=== PATIENT | male | born 1940 | race Hispanic/Latino ===

== ENCOUNTER 2017-01-27 08:26 | Day surgery (SDC) | payer MEDICARE ==
[~2017-01-27 08:26] MED LIST: ANCEF/STERILE WATER 2 GM/20 ML 2 GM/20 ML SYRINGE IV NR; NACL 0.9% 1000 ML 1,000 ML IV SCH
[2017-01-27] MEDS ORDERED: NACL 0.9% 500 ML 500 ML IV SCH (09:00)
[2017-01-27] MEDS ORDERED: SUBLIMAZE ONE (09:27)
[2017-01-27] MEDS ORDERED: DIPRIVAN 10 MG/ML IV ONE ×3 (09:27→12:51)
[2017-01-27] MEDS ORDERED: VERSED ONE (09:28)
[2017-01-27 09:46] LABS: Anion Gap 14 mmol/L; BUN/Creatinine Ratio 21.25; Blood Urea Nitrogen 17 mg/dL (9-20); Calcium 8.8 mg/dL (8.4-10.2); Carbon Dioxide 29 mmol/L (22-30); Chloride 98.5 mmol/L (98-107); Glucose 112 mg/dL (75-100); Potassium 3.5 mmol/L (3.6-5.0); Sodium 138 mmol/L (137-145)
[2017-01-27 09:54] LABS: Basophils % (Auto) 0.4 % (0.0-1.8); Eosinophils % (Auto) 3.2 % (0.0-4.3); Hematocrit 41.5 % (35.5-45.6); Hemoglobin 14.2 gm/dl (11.8-15.2); Mean Corpuscular HGB Conc 34 % (32-34); Mean Corpuscular Hemoglobin 30 pg (28-32); Mean Corpuscular Volume 89 fl (84-94); Platelet Count 247 K/mm3 (140-440); Red Blood Count 4.69 M/mm3 (3.65-5.03); Red Cell Distribution Width 13.4 % (13.2-15.2); White Blood Count 5.5 K/mm3 (4.5-11.0)
[2017-01-27] MEDS ORDERED: ANCEF/STERILE WATER 2 GM/20 ML 2 GM/20 ML SYRINGE IV ONE (10:18)
[2017-01-27] MEDS ORDERED: NACL 0.9% 1000 ML 1,000 ML ONE ×2 (10:21→12:47)
[2017-01-27] MEDS: XYLOCAINE 1%/ EPI 1:100,000 INFILTRATI ONE ×2 (10:33→10:52)
[2017-01-27] MEDS: HEPARIN/NS 5000 UNIT/500ML(CATH LAB) 1,000 ML IR ONE ×2 (10:34→10:52)
[2017-01-27] MEDS: HEPARIN 10,000 UNITS/10 ML ONE ×2 (11:17→12:00)
[2017-01-27] MEDS ORDERED: HEPARIN/NS 5000 UNIT/500ML(CATH LAB) 500 ML IR ONE (11:48)
--- NOTE | 2017-01-27 12:02 | Anesthesia Consultation ---
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
--- NOTE | 2017-01-27 12:03 | Post Anesthesia Evaluation ---
- Post Anesthesia Evaluation Patient Participated: Yes Airway Patent: Yes Stable Respiratory Function: Yes Nausea/Vomiting: No Temp > 96.8F: Yes Pain Manageable: Yes Adequeate Hydration: Yes Anesthesia Complications: No Block Receding Appropriately: Not Applicable Patient on Ventilator: No
--- NOTE | 2017-01-27 12:03 | Anesthesia Day of Surgery ---
Anesthesia Day of Surgery - Day of Surgery Patient Examined: Yes Patient H&P Reviewed: Yes Patient is NPO: Yes
--- NOTE | 2017-01-27 12:49 | Short Stay Summary ---
Short Stay Documentation Date of service: 01/27/17 - History Principal diagnosis: iliac artery aneurysm H&P: obtained from office - Allergies and Medications Current Medications: Allergies No Known Allergies Allergy (Verified 01/27/17 08:52) Home Medications Medication Instructions Recorded Confirmed Last Taken Type Multivitamin [Multi-Vitamin Daily] 1 each PO DAILY 06/04/13 01/27/17 01/26/17 History hydrALAZINE [Apresoline TAB] 25 mg PO Q8H 06/04/13 01/27/17 01/26/17 History Amoxicillin [Amoxicillin] 500 mg PO BID 01/27/17 01/27/17 01/26/17 History Clarithromycin [Clarithromycin] 500 mg PO QDAY 01/27/17 01/27/17 01/26/17 History Losartan/Hydrochlorothiazide 1 tab PO QDAY 01/27/17 01/27/17 01/26/17 History [Losartan-Hctz 100-25 mg Tab] Omeprazole 10 mg PO QDAY 01/27/17 01/27/17 01/26/17 History Active Medications Cefazolin Sodium (Ancef/Sterile Water 2 Gm/20 Ml) 2 gm in 20 mls @ 80 mls/hr IV PREOP NR PRN Reason: Protocol Stop: 01/27/17 23:00 Last Admin: 01/27/17 10:34 Dose: 20 mls Sodium Chloride (Nacl 0.9% 500 Ml) 500 mls @ 50 mls/hr IV DIRECT KHAI - Brief post op/procedure progress note Date of procedure: 01/27/17 Pre-op diagnosis: REAL aneurysm Post-op diagnosis: same Procedure: exclusion of aneurysm Anesthesia: local Surgeon: JARET ALDRICH Pathology: none Condition: stable - Disposition Condition at discharge: Good Disposition: DISCHARGED TO HOME OR SELFCARE Short Stay Discharge Plan Activity: advance as tolerated Weight Bearing Status: Weight Bear as Tolerated Diet: regular Wound: keep clean and dry, per your surgeon's advice Follow up with: PRIMARY CARE, [Primary Care Provider] - 7 Days
--- NOTE | 2017-01-27 12:59 | Operative Report ---
Operative Report Operative Report: Exam: EXAM: STENT/GRAFT PLACEMENT AND COIL EMBOLIZATION TO EXCLUDE RIGHT COMMON ILIAC ARTERY ANEURYSM CLINICAL INDICATION: 6 CM RIGHT COMMON ILIAC ARTERY ANEURYSM DATE: 01/27/2017 PROCEDURE: Following an explanation of the risks, benefits and alternatives; written informed consent was obtained. The patient was brought to the injury We placed in supine position on the examination table. Initial ultrasound evaluation of his bilateral groins demonstrate a patent bilateral common femoral arteries. His groins were prepped and draped in the usual sterile fashion. 1% lidocaine was used for anesthesia. Under ultrasound guidance, the right common femoral artery was cannulated with a 7 cm 21-gauge needle. 0.018 guidewire was advanced centrally under fluoroscopy. The needle was removed and a micro-sheath placed. The 0.018 guidewire was exchanged for a 0.035 guidewire and the micro-sheath exchanged for a 8 [place] vascular sheath. Under ultrasound guidance, the left common femoral artery was cannulated with a 7 cm 21-gauge needle. A 0.018 guidewire was advanced centrally under fluoroscopy. The needle was removed and a micro-sheath placed. The 0.018 guidewire was exchanged for a 0.035 guidewire and the micro-sheath exchanged for a 5 [place] vascular sheath. An Omni flush catheter was advanced to the aortic bifurcation and angiography performed. His demonstrates a widely patent distal abdominal aorta. Multiple obliquities were obtained to demonstrate deep neck of the right common iliac artery aneurysm as well as the origin of the external iliac artery and internal iliac artery. Attempts to cannulate the internal iliac artery from a contralateral approach were unsuccessful therefore a decision was made to approach from the right sheath. A 5 [place] rim catheter and 0.035 guidewire were advanced through the right sheath and used to cannulate the right internal iliac artery. Digital subtraction angiography demonstrates the origin of distal branch vessels to provide an adequate zone for embolization. A renegade high flow microcatheter was advanced through the rim catheter into the midportion of the right internal iliac artery proximal to the origin of any pelvic vessels. Embolization of the internal iliac artery was then performed using 4 Mandi coils. Post embolization imaging and demonstrated cessation of flow. Through the right sheath, a 4 [place] vertebral catheter was then placed over 0.035 guidewire and advanced into the abdominal aorta. An Amplatz superstiff guidewire was then advanced through the vertebral catheter number he will catheter removed. Angiography performed from the contralateral catheter placed in the distal abdominal aorta and through the right sheath insertion site demonstrated the origin of the aneurysm as well as the draining vessels. A 7.9 mm x 11 mm V BX stent/graft was then advanced to extend from the right external iliac artery into the right common iliac artery. A 5.9 mm x 11 mm V BX stent/graft was then advanced through the first stent from the right common iliac artery to the aortic bifurcation. The proximal end of the stent/graft material at the aortic bifurcation wasn't seated using a 14 mm balloon insufflated to 8 janine for 30 seconds. The overlap was then treated using a 14 mm balloon insufflated to poor atmospheres for 30 seconds. Post stent imaging demonstrated a persistent endoleak along the inferior aspect of the stent/ graft. An additional 5.9 mm x 11 mm V BX stent/graft was then advanced from the external iliac artery to the external iliac artery stent. The stent was then seated using the 14 mm balloon. Imaging obtained through the catheter on the contralateral side as well as imaging obtained to the sheath demonstrated brisk luminal flow throughout the entire common iliac artery and external iliac artery without flow limitation. No endoleak is present. There is no persistent filling of the aneurysm. Hemostasis was achieved and bilateral groins using Angio-Seal arterial closure device. Pressure dressings were then applied to bilateral groins. The patient tolerated the procedure well. There were no immediate post procedure compensations. Sedation was performed under guidance of anesthesia services. Continuous cardiopulmonary monitoring as he lies. IMPRESSION:1) Aortic and pelvic angiography demonstrating a 5-6 cm aneurysm arising from the right common iliac artery. 2) Embolization of the right internal iliac artery using 4 coils. 3) Exclusion of the aneurysm using 3 stent graft's deployed from the aortic bifurcation to the right common iliac artery to the right external iliac artery.
[2017-01-27 15:13] VITALS: BP 150/79
--- NOTE | 2017-01-27 15:58 | Vascular Lab Report ---
MISCELLANEOUS VESSEL IDENTIFICATION: COMMENTS ON THE SCAN: The bilateral common femoral arteries were identified and under real-time ultrasound guidance werecannulated. IMPRESSION: Successful ultrasound guided arterial cannulation.
== END 2017-01-27 08:27 | disposition home or self-care (01) ==
LOC: OPU 08:26
PROVIDERS: ATTEND Radiology Diagnostic Radiology
DX: I72.3 Aneurysm of iliac artery (principal); I70.245 Atherosclerosis of native arteries of left leg with ulceration of other part of foot; K21.9 Gastro-esophageal reflux disease without esophagitis; Z79.899 Other long term (current) drug therapy
CPT/HCPCS: 36415; 37221; 37223; 37242; 76937; 80048; 85025; C1725; C1751; C1760; C1769; C1887; C1894; J0690; J1644; J2250; J2704; J3010; J7030; 33223; 75630; Q9967

== ENCOUNTER 2019-05-17 19:53 | Emergency (ER) | payer MEDICARE ==
--- NOTE | 2019-05-17 20:19 | Emergency Department Report ---
ED Male HPI - General Chief complaint: Abdominal Pain Stated complaint: UNABLE TO URINATE Time Seen by Provider: 05/17/19 20:01 Source: EMS Mode of arrival: Stretcher Limitations: Physical Limitation, Other - History of Present Illness Initial comments: She is a 78-year-old male that presents emergency room with complaints of lower abdominal pressure and inability to urinate. Patient states he hasn't urinated for about 12 hours. Patient states he usually uses a condom catheter at home to urinate patient denies fever or chills. Patient denies other pain. Patient states the pressure is a 2 out of 10. -: Sudden Severity: mild Severity scale (0 -10): 2 Quality: aching Consistency: constant Improves with: rest Worsens with: movement urinary retention. denies: discharge, swelling, mass, rash, blood in urine, dysuria, fever, nausea/vomiting, incontinence - Related Data Home Medications Medication Instructions Recorded Confirmed Last Taken Multivitamin [Multi-Vitamin Daily] 1 each PO DAILY 06/04/13 01/27/17 01/26/17 hydrALAZINE [Apresoline TAB] 25 mg PO Q8H 06/04/13 01/27/17 01/26/17 Amoxicillin 500 mg PO BID 01/27/17 01/27/17 01/26/17 Clarithromycin 500 mg PO QDAY 01/27/17 01/27/17 01/26/17 Losartan/Hydrochlorothiazide 1 tab PO QDAY 01/27/17 01/27/17 01/26/17 [Losartan-Hctz 100-25 mg Tab] Omeprazole 10 mg PO QDAY 01/27/17 01/27/17 01/26/17 Previous Rx's Medication Instructions Recorded Last Taken Type Acetaminophen/Codeine [Tylenol 1 tab PO Q6H PRN #10 tab 05/17/19 Unknown Rx /Codeine # 3 tab] Sulfamethoxazole/Trimethoprim 1 each PO BID 10 Days #20 tablet 05/17/19 Unknown Rx [Bactrim DS TAB] Allergies Allergy/AdvReac Type Severity Reaction Status Date / Time No Known Allergies Allergy Verified 01/27/17 08:52 ED Review of Systems ROS: Stated complaint: UNABLE TO URINATE Other details as noted in HPI Constitutional: denies: chills, fever Eyes: denies: eye pain, eye discharge, vision change ENT: denies: ear pain, throat pain Respiratory: denies: cough, shortness of breath, wheezing Cardiovascular: denies: chest pain, palpitations Endocrine: no symptoms reported Gastrointestinal: abdominal pain. denies: nausea, diarrhea Genitourinary: denies: urgency, dysuria Musculoskeletal: denies: back pain, joint swelling, arthralgia Skin: denies: rash, lesions Neurological: denies: headache, weakness, paresthesias Psychiatric: denies: anxiety, depression Hematological/Lymphatic: denies: easy bleeding, easy bruising ED Past Medical Hx - Past Medical History Previous Medical History?: Yes Hx Hypertension: Yes (2010) Hx CVA: Yes (right sided weakness) Hx Heart Attack/AMI: No Hx Congestive Heart Failure: No Hx GERD: Yes Additional medical history: high cholesterol - Surgical History Past Surgical History?: Yes Additional Surgical History: Bilat knee, skull, bilat arm surgery - Family History Family history: no significant - Social History Smoking Status: Former Smoker Substance Use Type: None - Medications Home Medications: Home Medications Medication Instructions Recorded Confirmed Last Taken Type Multivitamin [Multi-Vitamin Daily] 1 each PO DAILY 06/04/13 01/27/17 01/26/17 History hydrALAZINE [Apresoline TAB] 25 mg PO Q8H 06/04/13 01/27/17 01/26/17 History Amoxicillin 500 mg PO BID 01/27/17 01/27/17 01/26/17 History Clarithromycin 500 mg PO QDAY 01/27/17 01/27/17 01/26/17 History Losartan/Hydrochlorothiazide 1 tab PO QDAY 01/27/17 01/27/17 01/26/17 History [Losartan-Hctz 100-25 mg Tab] Omeprazole 10 mg PO QDAY 01/27/17 01/27/17 01/26/17 History Acetaminophen/Codeine [Tylenol 1 tab PO Q6H PRN #10 tab 05/17/19 Unknown Rx /Codeine # 3 tab] Sulfamethoxazole/Trimethoprim 1 each PO BID 10 Days #20 tablet 05/17/19 Unknown Rx [Bactrim DS TAB] ED Physical Exam - General Limitations: Physical Limitation, Other General appearance: alert, in no apparent distress - Head Head exam: Present: atraumatic, normocephalic - Eye Eye exam: Present: normal appearance - ENT ENT exam: Present: mucous membranes moist - Neck Neck exam: Present: normal inspection - Respiratory Respiratory exam: Present: normal lung sounds bilaterally. Absent: respiratory distress - Cardiovascular Cardiovascular Exam: Present: regular rate, normal rhythm. Absent: systolic murmur, diastolic murmur, rubs, gallop - GI/Abdominal GI/Abdominal exam: Present: soft, normal bowel sounds. Absent: distended, tenderness, guarding - Rectal Rectal exam: Present: deferred - Extremities Exam Extremities exam: Present: normal inspection - Back Exam Back exam: Present: normal inspection - Neurological Exam Neurological exam: Present: alert, oriented X3 - Psychiatric Psychiatric exam: Present: normal affect, normal mood - Skin Skin exam: Present: warm, dry, intact, normal color. Absent: rash ED Course Vital Signs 05/17/19 05/17/19 05/17/19 19:57 20:13 20:16 Temperature 97.9 F Pulse Rate 98 H 100 H 102 H Respiratory 19 14 20 Rate Blood Pressure 169/94 159/101 O2 Sat by Pulse 98 95 95 Oximetry 05/17/19 05/17/19 05/17/19 20:30 20:46 21:00 Temperature Pulse Rate 96 H 91 H 92 H Respiratory 12 18 13 Rate Blood Pressure 184/103 159/101 184/107 O2 Sat by Pulse 96 94 95 Oximetry 05/17/19 05/17/19 05/17/19 21:10 21:16 21:30 Temperature Pulse Rate Respiratory 16 19 19 Rate Blood Pressure 184/103 202/112 O2 Sat by Pulse 94 94 Oximetry 05/17/19 05/17/19 05/17/19 21:46 22:00 22:16 Temperature Pulse Rate 89 Respiratory 20 14 19 Rate Blood Pressure 184/107 199/119 199/119 O2 Sat by Pulse 94 93 95 Oximetry 05/17/19 22:30 Temperature Pulse Rate 97 H Respiratory 21 Rate Blood Pressure 190/98 O2 Sat by Pulse 95 Oximetry - Reevaluation(s) Reevaluation #1: Alonso placed by nurse and patient states she's not having any pain or pressure. Patient states he is feeling good. 05/17/19 20:19 Reevaluation #2: Patient states she is feeling good. Patient's Alonso draining clear yellow urine 05/17/19 20:43 Reevaluation #3: I discussed all results with patient. Patient is stable for discharge. Patient will be discharged home. Patient agrees with plan of care. Patient given discharge instructions. Patient voiced understanding discharge instructions. 05/17/19 22:24 ED Medical Decision Making - Medical Decision Making OLU is a 78-year-old male that presents emergency room with complaints of lower abdominal pressure and inability to urinate. Patient had a Alonso placed immediately and his symptoms improved. Patient had a large volume of yellow urine removed. Patient's UA was done and was consistent with a UTI. Patient given antibiotics. Patient sent home with his Alonso. Patient instructed to follow-up with primary care in a urologist within 2-3 days. Patient stable for discharge. While in the ER the patient found to have elevated blood pressure. His home dose of hydralazine as well as clonidine 0.1 mg. Patient's final blood pressure was 170/80. - Differential Diagnosis UTI. Urinary retention. Critical care attestation.: If time is entered above; I have spent that time in minutes in the direct care of this critically ill patient, excluding procedure time. ED Disposition Clinical Impression: Urinary retention Abdominal pain Qualifiers: Abdominal location: lower abdomen, unspecified Qualified Code(s): R10.30 - Lower abdominal pain, unspecified UTI (urinary tract infection) Qualifiers: Urinary tract infection type: acute cystitis Hematuria presence: with hematuria Qualified Code(s): N30.01 - Acute cystitis with hematuria Hypertension Qualifiers: Hypertension type: essential hypertension Qualified Code(s): I10 - Essential (primary) hypertension Disposition: - TO HOME OR SELFCARE Is pt being admited?: No Does the pt Need Aspirin: No Condition: Stable Instructions: Urinary Retention in Men (ED), Urinary Tract Infection in Men (ED), Alonso Catheter Placement and Care (ED), Hypertension (ED), Urinary Leg Bag (GEN) Additional Instructions: Patient to follow up with primary care in 2-3 days. Patient to follow-up with urologist in 2-3 days. Patient to return to ER if condition worsens. Patient to take meds as directed. Patient increase water. . Patient to take Tylenol or ibuprofen when necessary for pain. Prescriptions: Sulfamethoxazole/Trimethoprim [Bactrim DS TAB] 1 each PO BID 10 Days #20 tablet Acetaminophen/Codeine [Tylenol /Codeine # 3 tab] 1 tab PO Q6H PRN #10 tab PRN Reason: Pain , Severe (7-10) Referrals: CALEB SALDANA MD [Primary Care Provider] - 2-3 Days Time of Disposition: 22:23
[2019-05-17] MEDS ORDERED: APRESOLINE PO ONE (21:52)
[2019-05-17 22:04] LABS: Bilirubin,Urine NEG (Negative); Blood,Urine LG (Negative); Color,Urine Yellow (Yellow); Protein,Urine <15 mg/dL mg/dL (Negative); Urobilinogen,Urine < 2.0 mg/dL (<2.0)
[2019-05-17] MEDS ORDERED: CATAPRES PO ONE (22:23)
[2019-05-17 22:34] VITALS: BP 190/98
== END 2019-05-18 02:41 | disposition home or self-care (01) ==
LOC: ED 19:53
DX: N39.0 Urinary tract infection, site not specified (principal); R33.9 Retention of urine, unspecified; I10 Essential (primary) hypertension; K21.9 Gastro-esophageal reflux disease without esophagitis; E78.00 Pure hypercholesterolemia, unspecified; Z86.73 Personal history of transient ischemic attack (TIA), and cerebral infarction without residual deficits; Z98.890 Other specified postprocedural states; Z87.891 Personal history of nicotine dependence; Z79.899 Other long term (current) drug therapy
CPT/HCPCS: 51702; 81001; 99283

== ENCOUNTER 2019-10-23 09:17 | Outpatient (CLI) | payer MEDICARE | END 2019-10-23 09:18 | disposition home or self-care (01) | LOC: WOUND 09:17 | PROVIDERS: ATTEND Surgery | DX: L20.9 Atopic dermatitis, unspecified (principal); H54.8 Legal blindness, as defined in USA; R41.3 Other amnesia; I10 Essential (primary) hypertension; Z86.73 Personal history of transient ischemic attack (TIA), and cerebral infarction without residual deficits | CPT/HCPCS: 99215; G0463 ==

== ENCOUNTER 2020-02-25 06:21 | Observation (INO) | payer MEDICARE ==
[2020-02-25] MEDS ORDERED: ASPIRIN 325 MG TAB PO ONE (06:47)
[2020-02-25] MEDS ORDERED: ACETAMINOPHEN 500 MG TAB PO ONE (07:02)
[2020-02-25] MEDS ORDERED: NITROGLYCERIN 0.4 MG TAB SUBL SL PRN (07:02)
[2020-02-25] MEDS ORDERED: FAMOTIDINE 20 MG TAB PO ONE (07:02)
--- NOTE | 2020-02-25 07:07 | Emergency Department Report ---
ED Chest Pain HPI - General Chief Complaint: Chest Pain Stated Complaint: CHEST PAIN PUI?: No Time Seen by Provider: 02/25/20 06:53 Source: EMS (Verbal report received from emergency medical services. EMS documentation not available at time of chart dictation ), RN notes reviewed, old records reviewed Mode of arrival: Stretcher Limitations: Physical Limitation - History of Present Illness Initial Comments: The patient is a pleasant and cooperative 79-year-old gentleman who is not known to myself previously, reportedly has a history of a right common iliac artery aneurysm, status post embolization, history of stroke, right-sided deficits, history of hypertension, bronchitis, and electrolyte derangement He does not know who his primary care doctor is. He is brought to the hospital by emergency medical services with a complaint of chest pain. Chest pain is left-sided. It did not radiate anywhere. There is no vomiting, diaphoresis, or exertional shortness of breath. The patient typically resides in a wheelchair. He has poor mobility at baseline. Denies fever, has a chronic cough, no loss of taste or smell, he is not sure if he is taken aspirin recently. No recent cardiac risk ratification that he is aware of. No recent travel or surgeries. No leg pain or leg swelling. No hematemesis or bright red blood per rectum. He rates his chest discomfort at a minimum at this time. EMS verbally reported that prehospital EKG was unremarkable for STEMI. MD Complaint: chest pain -: Sudden, minutes(s) Pain Location: left chest Pain Radiation: RUE Severity: mild Quality: aching Consistency: now resolved Improves With: nothing Worsens With: nothing Aspirin use within the Past 7 Days: (0) No - Related Data On Oral Contraceptives: No Home Medications Medication Instructions Recorded Confirmed Last Taken Multivitamin [Multi-Vitamin Daily] 1 each PO DAILY 06/04/13 01/27/17 01/26/17 hydrALAZINE [Apresoline TAB] 25 mg PO Q8H 06/04/13 01/27/17 01/26/17 Amoxicillin 500 mg PO BID 01/27/17 01/27/17 01/26/17 Clarithromycin 500 mg PO QDAY 01/27/17 01/27/17 01/26/17 Losartan/Hydrochlorothiazide 1 tab PO QDAY 01/27/17 01/27/17 01/26/17 [Losartan-Hctz 100-25 mg Tab] Omeprazole 10 mg PO QDAY 01/27/17 01/27/17 01/26/17 Previous Rx's Medication Instructions Recorded Last Taken Type Acetaminophen/Codeine [Tylenol 1 tab PO Q6H PRN #10 tab 05/17/19 Unknown Rx /Codeine # 3 tab] Sulfamethoxazole/Trimethoprim 1 each PO BID 10 Days #20 tablet 05/17/19 Unknown Rx [Bactrim DS TAB] Allergies Allergy/AdvReac Type Severity Reaction Status Date / Time No Known Allergies Allergy Verified 01/27/17 08:52 Heart Score - HEART Score History: Slightly suspicious EKG: Non-specific Age: > 65 Risk factors: 1-2 risk factors Troponin: < normal limit HEART Score: 4 - Critical Actions Critical Actions: 4-6 pts:12-16.6% risk of adverse cardiac event. Should be admitted ED Review of Systems ROS: Stated complaint: CHEST PAIN Other details as noted in HPI Constitutional: denies: fever Eyes: denies: eye discharge ENT: denies: congestion Respiratory: cough Cardiovascular: chest pain Gastrointestinal: denies: abdominal pain, nausea, vomiting Genitourinary: denies: dysuria Musculoskeletal: denies: back pain Neurological: weakness (Chronic weakness) Hematological/Lymphatic: denies: easy bleeding ED Past Medical Hx - Past Medical History Previous Medical History?: Yes Hx Hypertension: Yes (2010) Hx CVA: Yes (right sided weakness) Hx Heart Attack/AMI: No Hx Congestive Heart Failure: No Hx GERD: Yes Additional medical history: high cholesterol, massive aneurysm, paralized right side, bed ridden x 8 years, visual impaired - Surgical History Past Surgical History?: Yes Additional Surgical History: Bilat knee, skull, bilat arm surgery - Social History Smoking Status: Former Smoker Substance Use Type: None - Medications Home Medications: Home Medications Medication Instructions Recorded Confirmed Last Taken Type Multivitamin [Multi-Vitamin Daily] 1 each PO DAILY 06/04/13 01/27/17 01/26/17 History hydrALAZINE [Apresoline TAB] 25 mg PO Q8H 06/04/13 01/27/17 01/26/17 History Amoxicillin 500 mg PO BID 01/27/17 01/27/17 01/26/17 History Clarithromycin 500 mg PO QDAY 01/27/17 01/27/17 01/26/17 History Losartan/Hydrochlorothiazide 1 tab PO QDAY 01/27/17 01/27/17 01/26/17 History [Losartan-Hctz 100-25 mg Tab] Omeprazole 10 mg PO QDAY 01/27/17 01/27/17 01/26/17 History Acetaminophen/Codeine [Tylenol 1 tab PO Q6H PRN #10 tab 05/17/19 Unknown Rx /Codeine # 3 tab] Sulfamethoxazole/Trimethoprim 1 each PO BID 10 Days #20 tablet 05/17/19 Unknown Rx [Bactrim DS TAB] ED Physical Exam - General Limitations: Physical Limitation General appearance: alert, in no apparent distress - Head Head exam: Present: atraumatic, normocephalic - Eye Eye exam: Present: normal appearance, EOMI. Absent: nystagmus - ENT ENT exam: Present: normal exam, normal orophraynx, mucous membranes moist, normal external ear exam - Neck Neck exam: Present: normal inspection, full ROM. Absent: tenderness, meningismus - Respiratory Respiratory exam: Present: normal lung sounds bilaterally. Absent: respiratory distress - Cardiovascular Cardiovascular Exam: Present: regular rate, normal rhythm, normal heart sounds. Absent: bradycardia, tachycardia, irregular rhythm, systolic murmur, diastolic murmur, rubs, gallop - GI/Abdominal GI/Abdominal exam: Present: soft. Absent: distended, tenderness, guarding, rebound, rigid, pulsatile mass - Rectal Rectal exam: Present: deferred - Extremities Exam Extremities exam: Present: normal inspection (Excoriations and scratch cobian noted to the left shoulder), other (2+ pulses noted in the bilateral upper and lower extremities. There is no palpable cord. negative Homans sign. Muscular compartments are soft. The pelvis is stable.). Absent: pedal edema - Back Exam Back exam: Present: normal inspection. Absent: tenderness, CVA tenderness (R), CVA tenderness (L), paraspinal tenderness, vertebral tenderness - Neurological Exam Neurological exam: Present: alert, other (There is no facial droop. The tongue is midline. Extraocular movements are intact bilaterally. [id number] in the right arm and right leg, although able to move them weekly. Moving left arm and left leg spontaneously. Sensation is intact to light touch in 4 extremities) - Psychiatric Psychiatric exam: Present: flat affect - Skin Skin exam: Present: warm ED Course Vital Signs 02/25/20 02/25/20 02/25/20 07:56 07:59 10:34 Temperature 98.6 F Pulse Rate 83 78 Respiratory 16 19 Rate Blood Pressure 192/110 Blood Pressure 195/107 [Left] O2 Sat by Pulse 100 Oximetry - Reevaluation(s) Reevaluation #1: 02/25/20 07:05 Differential diagnosis, including but not limited to: Acute coronary syndrome, GERD, gastritis, hiatal hernia, pneumonia, pulmonary embolism Assessment and plan: 79-year-old gentleman with history of stroke, hemiparesis, hypertension, poorly characterized chest pain, and poor mobility at baseline. He has minimal discomfort at this time. Check basic labs, EKG, x-ray of the chest, treat pain medicine, and reassess. P atient at moderate risk for major adverse cardiac event as per heart score, and therefore, if initial diagnostics unremarkable, merits criteria for hospitalization for urgent cardiac risk ratification. Discussed plan of care with patient, who verbalized understanding, and who is amenable to this plan of care. Reevaluation #2: 02/25/20 10:58 CT scan of the chest shows no dissection or pulmonary embolism. 4.2 cm aneurysm distal arch appreciated, for this finding I will have the patient follow-up with outpatient vascular, cardiology, or thoracic surgery. Does not meet criteria for transfer at this time. Dr Pily Winston to admi Patient does meet criteria for hospitalization for cardiac risk ratification. 02/25/20 11:07 ALLEN score - Allen Score Age > 65: (1) Yes Aspirin use within the Past 7 Days: (0) No 3 or more CAD Risk Factors: (1) Yes 2 or more Angina events in past 24 hrs: (0) No Known CAD with more than 50% Stenosis: (0) No Elevated Cardiac Markers: (0) No ST Deviation Greater than 0.5mm: (0) No ALLEN Score: 2 ED Medical Decision Making - Lab Data Result diagrams: 02/25/20 06:53 02/25/20 07:07 Lab Results 02/25/20 02/25/20 Range/Units 06:53 07:07 WBC 9.8 (4.5-11.0) K/mm3 RBC 4.98 (3.65-5.03) M/mm3 Hgb 15.3 H (11.8-15.2) gm/dl Hct 45.0 (35.5-45.6) % MCV 90 (84-94) fl MCH 31 (28-32) pg MCHC 34 (32-34) % RDW 14.2 (13.2-15.2) % Plt Count 229 (140-440) K/mm3 Lymph % (Auto) 3.6 L (13.4-35.0) % Elmore % (Auto) 6.6 (0.0-7.3) % Eos % (Auto) 0.0 (0.0-4.3) % Baso % (Auto) 0.0 (0.0-1.8) % Lymph # 0.4 L (1.2-5.4) K/mm3 Elmore # 0.7 (0.0-0.8) K/mm3 Eos # 0.0 (0.0-0.4) K/mm3 Baso # 0.0 (0.0-0.1) K/mm3 Seg Neutrophils % 89.8 H (40.0-70.0) % Seg Neutrophils # 8.8 H (1.8-7.7) K/mm3 Sodium 134 L (137-145) mmol/L Potassium 3.9 (3.6-5.0) mmol/L Chloride 95.5 L (98-107) mmol/L Carbon Dioxide 29 (22-30) mmol/L Anion Gap 13 mmol/L BUN 13 (9-20) mg/dL Creatinine 0.7 L (0.8-1.5) mg/dL Estimated GFR > 60 ml/min BUN/Creatinine Ratio 19 % Glucose 140 H (75-100) mg/dL Calcium 9.2 (8.4-10.2) mg/dL Troponin T < 0.010 (0.00-0.029) ng/mL - EKG Data -: EKG Interpreted by Me EKG shows normal: sinus rhythm Rate: normal - EKG Data 02/25/20 07:52 This is a sinus rhythm, 84 bpm, with a left axis deviation, left anterior fascicular block, poor R wave progression, motion artifact, QTC prolonged, abnormal EKG, not a STEMI - Radiology Data Radiology results: image reviewed interpreted by me: X-ray of the chest shows hyperinflated lungs, otherwise, no acute pathology Print Report Referring Physician: HANNAH LAU Patient Name: MIRNA MOBLEY Date of : 1940 Sex: Male Report Date: 2020-02-25 Report Status: Finalized Findings [facility] [address] [id number] Cat Scan Report Signed Patient: MIRNA MOBLEY MR#: [id number] : 1940 Acct:[id number] Age/Sex: 79 / M ADM Date: 02/25/20 Loc: ED Attending Dr: Ordering Physician: HANNAH LAU MD Date of Service: 02/25/20 Procedure(s): CT angio chest Accession Number(s): [id number] cc: HANNAH LAU MD CTA CHEST WITH IV CONTRAST INDICATION: Acute onset chest pain with dyspnea. Elevated d-dimer. TECHNIQUE: Axial CT images were obtained through the chest after injection of 100 L IV contrast. 3 plane MIP reconstructions were produced. All CT scans at this location are performed using CT dose reduction for ALARA by means of automated exposure control. COMPARISON: None available. FINDINGS: PULMONARY ARTERIES: No pulmonary emboli. AORTA AND ARTERIES: There is dilatation involving the proximal aspect of the descending thoracic aorta just beyond the aortic arch measuring up to 4.2 cm in greatest diameter. MEDIASTINUM: No mass, lymphadenopathy or other significant abnormality. The heart is normal in size without a pericardial effusion. The trachea and main bronchi are patent and normal in caliber. There appears to be fluid throughout much of the lumen of the thoracic aorta LUNGS: No suspicious consolidation, nodule or mass. No pneumothorax or pleural effusion. ADDITIONAL FINDINGS: None. UPPER ABDOMEN: No acute findings. BONES: No significant osseous abnormality. IMPRESSION: 1. No CT evidence for pulmonary embolism. 2. Focal aneurysmal type dilatation involving the proximal aspect of the descending thoracic aorta, as outlined above. 3. Moderate to severe gastroesophageal reflux. Signer Name: Tang Arboleda MD Signed: 02/25/2020 10:29 AM Workstation Name: [id number] Transcribed By: BC Dictated By: Tang Arboleda MD Electronically Authenticated By: Tagn Arboleda MD Signed Date/Time: 02/25/20 1029 DD/ 1022 Critical care attestation.: If time is entered above; I have spent that time in minutes in the direct care of this critically ill patient, excluding procedure time. ED Disposition Clinical Impression: Acute chest pain Disposition: 09 OP ADMIT IP TO THIS HOSP Is pt being admited?: Yes Does the pt Need Aspirin: Yes Condition: Good Instructions: Chest Pain (ED) Referrals: PRIMARY CARE, [Primary Care Provider] - 3-5 Days
[2020-02-25 07:39] LABS: BUN/Creatinine Ratio 19; Blood Urea Nitrogen 13 mg/dL (9-20); Calcium 9.2 mg/dL (8.4-10.2); Hemolysis Index 5
[2020-02-25 07:42] LABS: Hemoglobin 15.3 gm/dl (11.8-15.2); Lymphocytes # (Auto) 0.4 K/mm3 (1.2-5.4); Lymphocytes % (Auto) 3.6 % (13.4-35.0); Mean Corpuscular HGB Conc 34 % (32-34); Mean Corpuscular Volume 90 fl (84-94); Monocytes # (Auto) 0.7 K/mm3 (0.0-0.8); Monocytes % (Auto) 6.6 % (0.0-7.3); Platelet Count 229 K/mm3 (140-440); Red Blood Count 4.98 M/mm3 (3.65-5.03); Red Cell Distribution Width 14.2 % (13.2-15.2)
[2020-02-25 07:52] LABS: INR 1.03 (0.87-1.13)
--- NOTE | 2020-02-25 07:57 | XRay Report ---
CHEST 1 VIEW INDICATION: Chest Pain. COMPARISON: None FINDINGS: Support devices: None. Heart: Within normal limits. The aorta is mildly ectatic but well defined. Lungs/Pleura: No acute air space or interstitial disease. Azygos lobe is noted. Additional findings: None. IMPRESSION: No acute findings. Signer Name: Sourav Crouch Jr, MD Signed: 02/25/2020 7:53 AM Workstation Name: [id number]
[2020-02-25] MEDS ORDERED: SODIUM CHLORIDE 0.9% 500 ML 500 ML IV ONE (08:16)
[2020-02-25] MEDS ORDERED: hydrALAZINE 20 MG/1 ML INJ IV ONE ×2 (08:16→11:09)
--- NOTE | 2020-02-25 10:33 | Cat Scan Report ---
CTA CHEST WITH IV CONTRAST INDICATION: Acute onset chest pain with dyspnea. Elevated d-dimer. TECHNIQUE: Axial CT images were obtained through the chest after injection of 100 L IV contrast. 3 plane MIP rec onstructions were produced. All CT scans at this location are performed using CT dose reduction for A DARYL by means of automated exposure control. COMPARISON: None available. FINDINGS: PULMONARY ARTERIES: No pulmonary emboli. AORTA AND ARTERIES: There is dilatation involving the proximal aspect of the descending thoracic aort a just beyond the aortic arch measuring up to 4.2 cm in greatest diameter. MEDIASTINUM: No mass, lymphadenopathy or other significant abnormality. The heart is normal in size w ithout a pericardial effusion. The trachea and main bronchi are patent and normal in caliber. There a ppears to be fluid throughout much of the lumen of the thoracic aorta LUNGS: No suspicious consolidation, nodule or mass. No pneumothorax or pleural effusion. ADDITIONAL FINDINGS: None. UPPER ABDOMEN: No acute findings. BONES: No significant osseous abnormality. IMPRESSION: 1. No CT evidence for pulmonary embolism. 2. Focal aneurysmal type dilatation involving the proximal aspect of the descending thoracic aorta, a s outlined above. 3. Moderate to severe gastroesophageal reflux. Signer Name: Tang Arboleda MD Signed: 02/25/2020 10:29 AM Workstation Name: [id number]
[2020-02-25] MEDS ORDERED: hydrALAZINE 20 MG/1 ML INJ ONE ×2 (10:34→11:55)
[2020-02-25] MEDS ORDERED: PNEUMOCOCCAL 23 Valent 0.5 ML VIAL IM ONE (14:14)
--- NOTE | 2020-02-25 15:40 | History and Physical Report ---
History of Present Illness Date of examination: 02/25/20 Date of admission: 02/25/20 11:08 Chief complaint: Chest pain for the last 2 days History of present illness: 79-year-old male patient with significant past medical history of hypertension history of CVA with residual weakness, GERD Presented to the emergency room with chest pain of 2 days duration. Patient is wheelchair-bound Pain left-sided grades between 4-6 over 10, not associated with nausea vomiting or diaphoresis Patient denies any shortness of breath or palpitation No orthopnea no paroxysmal nocturnal dyspnea Patient has history of CVA with residual weakness Initial work-up is consistent with negative cardiac enzymes x3 Patient had elevated D-dimers, CTA chest negative for PE Past History Past Medical History: hypertension, hyperlipidemia, other (BPH) Past Surgical History: Other (Bilateral knee surgery, bilateral arm surgery, brain surgery) Social history: denies: smoking, alcohol abuse, prescription drug abuse Family history: hypertension Medications and Allergies Allergies Allergy/AdvReac Type Severity Reaction Status Date / Time No Known Allergies Allergy Verified 01/27/17 08:52 Home Medications Medication Instructions Recorded Confirmed Last Taken Type Multivitamin [Multi-Vitamin Daily] 1 each PO DAILY 06/04/13 02/25/20 02/24/20 08:00 History hydrALAZINE [Apresoline TAB] 25 mg PO Q8H 06/04/13 02/25/20 02/24/20 08:00 History Finasteride [Proscar] 5 mg PO QDAY 02/25/20 02/25/20 02/24/20 08:00 History Tamsulosin [Flomax] 0.4 mg PO QDAY 02/25/20 02/25/20 02/24/20 21:00 History Active Meds: Active Medications Nitroglycerin (Nitrostat) 0.4 mg SL .Q5MIN PRN PRN Reason: Chest Pain Review of Systems Constitutional: no weight loss, no weight gain Ears, nose, mouth and throat: no nasal congestion, no nasal discharge Cardiovascular: chest pain, no orthopnea, no palpitations, no lightheadedness Respiratory: no cough, no hemoptysis Gastrointestinal: no abdominal pain, no nausea, no vomiting Genitourinary Male: no dysuria, no hematuria Musculoskeletal: no myalgias, no arthritis Integumentary: no rash, no lesions Neurological: no numbness, no seizures Psychiatric: no anxiety, no memory loss, no depression Endocrine: no cold intolerance, no heat intolerance, no polydipsia, no polyuria Hematologic/Lymphatic: no easy bruising, no easy bleeding Allergic/Immunologic: no urticaria, no allergic rhinitis Exam - Constitutional Vitals: Temp Pulse Resp BP Pulse Ox 97.8 F 100 H 20 169/93 97 02/25/20 13:07 02/25/20 13:07 02/25/20 13:07 02/25/20 13:26 02/25/20 13:07 General appearance: Present: no acute distress, well-nourished - EENT Eyes: Present: PERRL, EOM intact - Neck Neck: Present: supple, normal ROM - Respiratory Respiratory effort: normal Respiratory: bilateral: diminished, negative: rales, rhonchi, wheezing - Cardiovascular Rhythm: regular Heart Sounds: Present: S1 & S2 - Extremities Extremities: no ischemia, No edema - Abdominal General gastrointestinal: Present: soft, non-tender, non-distended, normal bowel sounds - Integumentary Integumentary: Present: clear, warm - Musculoskeletal Musculoskeletal: strength equal bilaterally, other (Residual weakness) - Psychiatric Psychiatric: cooperative (Residual weakness), other - Neurologic Neurologic: other (History of CVA with residual weakness) HEART Score - HEART Score EKG: Non-specific Age: > 65 Risk factors: 1-2 risk factors Troponin: Troponin T < 0.010 ng/mL (0.00-0.029) 02/25/20 12:37 Troponin: < normal limit - Critical Actions Critical Actions: 4-6 pts:12-16.6% risk of adverse cardiac event. Should be admitted Results - Labs CBC & Chem 7: 02/25/20 06:53 02/25/20 07:07 Labs: Abnormal lab results 02/25/20 02/25/20 02/25/20 Range/Units 06:53 07:07 07:08 Hgb 15.3 H (11.8-15.2) gm/dl Lymph % (Auto) 3.6 L (13.4-35.0) % Lymph # 0.4 L (1.2-5.4) K/mm3 Seg Neutrophils % 89.8 H (40.0-70.0) % Seg Neutrophils # 8.8 H (1.8-7.7) K/mm3 D-Dimer 427.18 H (0-234) ng/mlDDU Sodium 134 L (137-145) mmol/L Chloride 95.5 L (98-107) mmol/L Creatinine 0.7 L (0.8-1.5) mg/dL Glucose 140 H (75-100) mg/dL Magnesium (1.7-2.3) mg/dL Total Creatine Kinase (55-170) units/L // Range/Units 07:08 Hgb (11.8-15.2) gm/dl Lymph % (Auto) (13.4-35.0) % Lymph # (1.2-5.4) K/mm3 Seg Neutrophils % (40.0-70.0) % Seg Neutrophils # (1.8-7.7) K/mm3 D-Dimer (0-234) ng/mlDDU Sodium (137-145) mmol/L Chloride (98-107) mmol/L Creatinine (0.8-1.5) mg/dL Glucose (75-100) mg/dL Magnesium 2.40 H (1.7-2.3) mg/dL Total Creatine Kinase 31 L (55-170) units/L Assessment and Plan --Atypical chest pain; Evaluate for acute coronary syndrome Serial cardiac enzymes, EKG during chest pain Echocardiogram for LV function ejection fraction Aspirin, beta-blockers, CORNEL inhibitors, nitrates, statins Morphine, supportive care Stress test to rule out ischemia --GERD; Protonix Supportive care --Elevated D-dimers; CTA chest negative for PE. Lower extremity Doppler study to rule out DVT --History of BPH; --Hypertension; moderate control Continue current antihypertensives and PRN medications --History of CVA with residual weakness; Supportive care --Full CODE STATUS Monitor closely and adjust management as needed Follow stress test, echocardiogram If negative and patient is stable May be discharged home tomorrow Plan of care reviewed with the patient and his nurse
[2020-02-25] MEDS ORDERED: MORPHINE 2 MG/1 ML INJ IV PRN (15:49)
[2020-02-25] MEDS: hydrALAZINE 25 MG TAB PO SCH ×2 (18:48→23:01)
[2020-02-25] MEDS ORDERED: ENOXAPARIN 40 MG/0.4 ML INJ SUB-Q SCH (22:00)
[2020-02-25] MEDS: carvediloL 3.125 MG TAB PO SCH (22:51)
[2020-02-26 04:56] LABS: BUN/Creatinine Ratio 19; Blood Urea Nitrogen 15 mg/dL (9-20); Calcium 8.6 mg/dL (8.4-10.2); Hemolysis Index 10
[2020-02-26] MEDS: hydrALAZINE 25 MG TAB PO SCH ×2 (08:00→17:21)
[2020-02-26] MEDS ORDERED: REGADENOSON 0.4 MG/5 ML INJ IV ONE ×2 (09:00→09:02)
[2020-02-26] MEDS ORDERED: ASPIRIN EC 325 MG TAB PO SCH (10:00)
[2020-02-26] MEDS ORDERED: TAMSULOSIN 0.4 MG CAP PO SCH (10:00)
[2020-02-26] MEDS ORDERED: PANTOPRAZOLE 40 MG INJ IV SCH (10:00)
[2020-02-26] MEDS ORDERED: FINASTERIDE 5 MG TAB PO SCH (10:00)
[2020-02-26] MEDS ORDERED: LISINOPRIL 5 MG TAB PO SCH (10:00)
--- NOTE | 2020-02-26 10:03 | Consultation ---
<MARY PAINTING - Last Filed: 02/26/20 09:59> History of Present Illness Consult date: 02/26/20 Requesting physician: TANG SAL Consult reason: chest pain History of present illness: The patient is a 79-year-old male with a past medical history of HTN, CVA with right-sided deficits, right common iliac artery aneurysm, status post e mbolization, bronchitis. He is previously unknown to our practice. He presented with c/o left-sided, non radiating, non exertional intermittent chest pain for the past day or so. He also reports nonproductive cough. The patient typically resides in a wheelchair. He has poor mobility at baseline. Pt denies any SOB, palpitations, n/v, diaphoresis, dizziness or syncope. Pharmacologic MPI stress test was ordered per primary team and pt is seen in stress lab. Past History Past Medical History: hypertension, hyperlipidemia, other (BPH) Past Surgical History: Other (Bilateral knee surgery, bilateral arm surgery, brain surgery) Social history: denies: smoking, alcohol abuse, prescription drug abuse Family history: hypertension Medications and Allergies Allergies Allergy/AdvReac Type Severity Reaction Status Date / Time No Known Allergies Allergy Verified 01/27/17 08:52 Home Medications Medication Instructions Recorded Confirmed Last Taken Type Multivitamin [Multi-Vitamin Daily] 1 each PO DAILY 06/04/13 02/25/20 02/24/20 08:00 History hydrALAZINE [Apresoline TAB] 25 mg PO Q8H 06/04/13 02/25/20 02/24/20 08:00 History Finasteride [Proscar] 5 mg PO QDAY 02/25/20 02/25/20 02/24/20 08:00 History Tamsulosin [Flomax] 0.4 mg PO QDAY 02/25/20 02/25/20 02/24/20 21:00 History Active Meds: Active Medications Aspirin (Ecotrin) 325 mg PO QDAY [facility] Carvedilol (Coreg) 3.125 mg PO BID [facility] Last Admin: 02/25/20 22:51 Dose: 3.125 mg Documented by: Enoxaparin Sodium (Enoxaparin) 40 mg SUB-Q QDAY@2200 [facility] Last Admin: 02/25/20 22:51 Dose: 40 mg Documented by: Finasteride (Proscar) 5 mg PO QDAY [facility] Hydralazine HCl (Apresoline) 25 mg PO Q8H [facility] Last Admin: 02/25/20 23:01 Dose: 25 mg Documented by: Lisinopril (Zestril) 2.5 mg PO QDAY [facility] Morphine Sulfate (Morphine) 2 mg IV Q4H PRN PRN Reason: Pain, Moderate (4-6) Last Admin: 02/25/20 22:52 Dose: 2 mg Documented by: Nitroglycerin (Nitrostat) 0.4 mg SL .Q5MIN PRN PRN Reason: Chest Pain Pantoprazole Sodium (Protonix) 40 mg IV QDAY [facility] Tamsulosin HCl (Flomax) 0.4 mg PO QDAY [facility] Review of Systems Constitutional: no weight loss, no weight gain, no fever, no chills, no sweats Ears, nose, mouth and throat: no ear pain, no nose pain, no sinus pressure, no sinus pain Cardiovascular: chest pain, high blood pressure, no orthopnea, no palpitations, no rapid/irregular heart beat, no edema, no syncope, no lightheadedness, no shortness of breath, no dyspnea on exertion Respiratory: cough, no shortness of breath, no dyspnea on exertion, no congestion, no wheezing, no pain on inspiration Gastrointestinal: no abdominal pain, no nausea, no vomiting, no diarrhea, no constipation, no change in bowel habits Genitourinary Male: no dysuria, no hematuria, no flank pain, no discharge, no urinary frequency, no urinary hesitancy Musculoskeletal: muscle weakness (right sided, chronic), no neck stiffness, no neck pain, no shooting arm pain, no arm numbness/tingling, no low back pain, no shooting leg pain, no leg numbness/tingling, no redness of joints Integumentary: no rash, no pruritis, no redness, no sores, no wounds Neurological: weakness (right-sided, chronic), no head injury, no paralysis, no parathesias, no numbness, no tingling, no seizures, no syncope Psychiatric: no anxiety Endocrine: no cold intolerance, no heat intolerance Hematologic/Lymphatic: no easy bruising, no easy bleeding Allergic/Immunologic: no urticaria Physical Examination Vital Signs Pulse Ox 97 02/25/20 07:00 General appearance: no acute distress HEENT: Positive: PERRL, Normocephaly, Mucus Membranes Moist Neck: Positive: neck supple, trachea midline Cardiac: Positive: Reg Rate and Rhythm, S1/S2 Lungs: Positive: Decreased Breath Sounds Neuro: Positive: Other (right-sided weakness, chronic) Abdomen: Negative: Tender Skin: Negative: Rash Musculoskeletal: No Pain Extremities: Absent: edema Results 02/25/20 06:53 02/26/20 03:52 Comprehensive Metabolic Panel 02/26/20 Range/Units 03:52 Sodium 137 (137-145) mmol/L Potassium 3.9 (3.6-5.0) mmol/L Chloride 101.6 (98-107) mmol/L Carbon Dioxide 26 (22-30) mmol/L BUN 15 (9-20) mg/dL Creatinine 0.8 (0.8-1.5) mg/dL Glucose 126 H (75-100) mg/dL Calcium 8.6 (8.4-10.2) mg/dL - Imaging and Cardiology Echo: pending EKG: report reviewed, image reviewed EKG interpretations - Telemetry EKG Rhythm: Sinus Rhythm - EKG Sinus rhythms and dysrhythmias: sinus rhythm Assessment and Plan Chest pain currently resolved. AMI r/o. Proceed with lexiscan MPI stress test and await echo. Pending stress test is negative and echo does not reveal any significant abnormalities, pt may discharge today from cardiology standpoint. Recommend pt follow up in our office with Dr. Moore within 2 weeks ([phone]). The patient has been seen in conjunction with Dr. Moore who agrees with the assessment and plan of care. - Patient Problems (1) Chest pain Current Visit: Yes Status: Acute (2) Hypertensive urgency Current Visit: Yes Status: Acute (3) PVD (peripheral vascular disease) Current Visit: Yes Status: Chronic (4) History of CVA (cerebrovascular accident) Current Visit: Yes Status: Chronic <JUAN MANUEL MOORE R - Last Filed: 02/26/20 10:53> Medications and Allergies Active Meds: Active Medications Aspirin (Ecotrin) 325 mg PO QDAY [facility] Carvedilol (Coreg) 3.125 mg PO BID [facility] Last Admin: 02/25/20 22:51 Dose: 3.125 mg Documented by: Enoxaparin Sodium (Enoxaparin) 40 mg SUB-Q QDAY@2200 [facility] Last Admin: 02/25/20 22:51 Dose: 40 mg Documented by: Finasteride (Proscar) 5 mg PO QDAY [facility] Hydralazine HCl (Apresoline) 25 mg PO Q8H [facility] Last Admin: 02/25/20 23:01 Dose: 25 mg Documented by: Lisinopril (Zestril) 2.5 mg PO QDAY [facility] Morphine Sulfate (Morphine) 2 mg IV Q4H PRN PRN Reason: Pain, Moderate (4-6) Last Admin: 02/25/20 22:52 Dose: 2 mg Documented by: Nitroglycerin (Nitrostat) 0.4 mg SL .Q5MIN PRN PRN Reason: Chest Pain Pantoprazole Sodium (Protonix) 40 mg IV QDAY [facility] Tamsulosin HCl (Flomax) 0.4 mg PO QDAY [facility] Physical Examination Vital Signs Pulse Ox 97 02/25/20 07:00 Results 02/25/20 06:53 02/26/20 03:52 Comprehensive Metabolic Panel 02/26/20 Range/Units 03:52 Sodium 137 (137-145) mmol/L Potassium 3.9 (3.6-5.0) mmol/L Chloride 101.6 (98-107) mmol/L Carbon Dioxide 26 (22-30) mmol/L BUN 15 (9-20) mg/dL Creatinine 0.8 (0.8-1.5) mg/dL Glucose 126 H (75-100) mg/dL Calcium 8.6 (8.4-10.2) mg/dL Assessment and Plan heart score 3 and spoke with and echo tds but normal lv function
[2020-02-26] MEDS: carvediloL 3.125 MG TAB PO SCH (11:18)
--- NOTE | 2020-02-26 11:25 | Treadmill Report ---
NUCLEAR PERFUSION CARDIAC STUDY REASON FOR STUDY: Chest pain. READING PHYSICIAN: Dr. Moore. IMAGING PROTOCOL: The patient received 10 mCi of Technetium 99m Tetrofosmin for resting image and 28 mCi of Technetium 99m Tetrofosmin for stress imaging. The imaging for the whole procedure was completed 30-90 minutes following the initial injection of Technetium 99m Tetrofosmin. The SPECT imaging in the 180 degree arc was performed in the right anterior oblique projection. Computerized reconstruction of the images was performed for analysis. IMAGING RESULTS: Normal cavity size from stress to rest. Normal distribution of radionuclide in the anterior, inferior, septal, and apical regions. Gated SPECT, EF greater than 65% with no wall motion abnormality. The patient infused Lexiscan with no EKG changes. SUMMARY: 1. Negative Lexiscan EKG. 2. Normal rest and stress myocardial perfusion scan. No significant stress ischemia. No wall motion abnormality. Gated SPECT, EF greater than 65%. JOB# [id number] VRM/NTS
--- NOTE | 2020-02-26 11:28 | Discharge Summary ---
Providers - Providers Date of Admission: 02/25/20 11:08 Date of discharge: 02/26/20 Attending physician: TANG SAL 02/25/20 14:14 Consult to Dietitian/Nutrition [CONS] Routine Physician Instructions: Reason For Exam: Reason for Consult: Pt needs oral supplement 02/25/20 20:00 Consult to Physician [CONS] Routine Comment: Consulting Provider: JUAN MANUEL SHAABZZ Physician Instructions: Reason For Exam: Atypical chest pain/risk factors/stress test Primary care physician: JUNIOR JAVA DEVELOPER Hospitalization Condition: Good Disposition: DC-01 TO HOME OR SELFCARE Time spent for discharge: 32 min Core Measure Documentation - Palliative Care Palliative Care/ Comfort Measures: Not Applicable - Core Measures Any of the following diagnoses?: none Exam - Constitutional Vitals: Temp Pulse Resp BP Pulse Ox 98.2 F 66 18 142/82 95 02/26/20 07:12 02/26/20 07:30 02/26/20 07:12 02/26/20 09:17 02/26/20 04:04 General appearance: Present: no acute distress, well-nourished - EENT Eyes: Present: PERRL, EOM intact - Neck Neck: Present: supple, normal ROM - Respiratory Respiratory effort: normal Respiratory: bilateral: diminished, negative: rales, rhonchi, wheezing - Cardiovascular Rhythm: regular Heart Sounds: Present: S1 & S2 - Extremities Extremities: no ischemia, No edema - Abdominal General gastrointestinal: Present: soft, non-tender, non-distended, normal bowel sounds - Integumentary Integumentary: Present: clear, warm - Musculoskeletal Musculoskeletal: strength equal bilaterally - Psychiatric Psychiatric: appropriate mood/affect, cooperative - Neurologic Neurologic: moves all extremities Plan Activity: advance as tolerated, fall precautions Diet: other (Cardiac diet) Additional Instructions: If you have recurrent chest pain or shortness of br eath, contact MD or go to emergency room. Follow up with: PRIMARY MD QUINN [Primary Care Provider] - 3-5 Days JUAN MANUEL SHABAZZ MD [Staff Physician] - 14 Days Prescriptions: Famotidine [Pepcid] 20 mg PO BID #20 tablet
[2020-02-26 15:42] VITALS: BP 154/92
[2020-02-27] MEDS ORDERED: PANTOPRAZOLE 40 MG TAB PO SCH (10:00)
== END 2020-02-26 18:36 | disposition home or self-care (01) ==
LOC: ED 06:21 → 4A 11:08
PROVIDERS: ADMIT Internal Medicine; ATTEND Internal Medicine
DX: R07.89 Other chest pain (principal); K21.9 Gastro-esophageal reflux disease without esophagitis; R79.1 Abnormal coagulation profile; I10 Essential (primary) hypertension; N40.0 Benign prostatic hyperplasia without lower urinary tract symptoms; E78.5 Hyperlipidemia, unspecified; I16.0 Hypertensive urgency; I73.9 Peripheral vascular disease, unspecified; E78.00 Pure hypercholesterolemia, unspecified; Z23 Encounter for immunization; Z86.73 Personal history of transient ischemic attack (TIA), and cerebral infarction without residual deficits; Z79.899 Other long term (current) drug therapy
CPT/HCPCS: 36415; 71045; 71275; 78452; 80048; 82550; 83735; 84484; 85025; 85379; 85610; 90732; 93005; 93017; 93306; 96372; 96374; 96375; 96376; 99285; A9502; C9113; G0009; G0378; J0360; J1650; J2270; J2785; J7040; Q9967; 90471

== ENCOUNTER 2020-10-05 08:57 | Emergency (ER) | payer MEDICARE ==
[2020-10-05] MEDS ORDERED: SODIUM CHLORIDE 0.9% 1000 ML 1,000 ML IV ONE (10:01)
--- NOTE | 2020-10-05 10:23 | Emergency Department Report ---
HPI - General Chief Complaint: Dyspnea/Respdistress Time Seen by Provider: 10/05/20 09:39 - HPI HPI: 79-year-old male presents to the emergency department via EMS from home with the complaint of shortness of breath and left-sided body pain. Bessy smith has a past medical history that includes previous CVA with right-sided hemiparesis, COPD, GERD, hypertension, high cholesterol. The patient is bedridden and is blind. This patient was just admitted to this hospital from 09/18 until 09/30 for evaluation of altered mental status and possible stroke, and the patient was also found to have COVID-19 during that admission. The patient's , Susi, has been providing history and background information. It sounds like the patient has been having some intermittent shortness of breath over the past 2 to 3 days. EMS was called out 3 different times this morning for his shortness of breath and he was brought to the emergency department for evaluation after the third call. The patient himself says he does not know why he is at the emergency department and has no current complaints. When asked if he is feeling short of breath the patient says "I could be." The other issue that the patient's complains about is the fact that he has had decreased oral intake. Upon discharge from this hospital recently the patient was placed on a pured diet and she was given instructions to thicken his feeds and liquids. However, the patient's says that he has not been having much oral intake recently. He does not have a primary care physician at this time. He previously was seeing Jesi Eng but his bedbound status has been a barrier to having appropriate outpatient follow-up. ED Past Medical Hx - Past Medical History Hx Hypertension: Yes (2010) Hx CVA: Yes (right sided weakness) Hx Heart Attack/AMI: No Hx Congestive Heart Failure: No Hx Diabetes: No Hx GERD: Yes Hx Asthma: No Hx COPD: Yes Hx HIV: No Additional medical history: high cholesterol, massive aneurysm, paralized right side, bed ridden x 8 years, visual impaired - Surgical History Additional Surgical History: Bilat knee, skull, bilat arm surgery - Social History Smoking Status: Never Smoker Substance Use Type: Alcohol - Medications Home Medications: Home Medications Medication Instructions Recorded Confirmed Last Taken Type Multivitamin [Multi-Vitamin Daily] 1 each PO DAILY 06/04/13 02/25/20 02/24/20 08:00 History hydrALAZINE [Apresoline TAB] 25 mg PO Q8H 06/04/13 02/25/20 02/24/20 08:00 History Finasteride [Proscar] 5 mg PO QDAY 02/25/20 02/25/20 02/24/20 08:00 History Tamsulosin [Flomax] 0.4 mg PO QDAY 02/25/20 02/25/20 02/24/20 21:00 History Famotidine [Pepcid] 20 mg PO BID #20 tablet 02/26/20 Unknown Rx ED Review of Systems ROS: Stated complaint: CHAYO Other details as noted in HPI Comment: Unobtainable due to pts medical conditions Physical Exam - Physical Exam Vital Signs: Vital Signs 10/05/20 10/05/20 10/05/20 09:53 09:58 09:59 Temperature 98.8 F Pulse Rate 81 Blood Pressure 103/47 [Left] O2 Sat by Pulse 88 93 Oximetry Physical Exam: GENERAL: The patient is well-developed well-nourished. HENT: Normocephalic. Atraumatic. Patient has moist mucous membranes. NECK: Supple. Trachea is midline. CHEST/LUNGS: Clear to auscultation. No tachypnea or accessory muscle use. There is no respiratory distress noted. HEART/CARDIOVASCULAR: Regular. There is no tachycardia. There is no murmur. ABDOMEN: Abdomen is soft, nontender. Patient has normal bowel sounds. There is no abdominal distention. SKIN: Skin is warm and dry. NEURO: The patient is awake and cooperative, but confused. AAO x2 to person and place but not time. Right-sided hemiparesis. Normal speech. MUSCULOSKELETAL: There is no tenderness or deformity. ED Course Vital Signs 10/05/20 10/05/20 10/05/20 09:53 09:58 09:59 Temperature 98.8 F Pulse Rate 81 Blood Pressure 103/47 [Left] O2 Sat by Pulse 88 93 Oximetry ED Medical Decision Making - Lab Data Result diagrams: 10/05/20 10:22 10/05/20 10:22 Lab Results 10/05/20 10/05/20 10/05/20 Range/Units 10:22 10:22 10:22 WBC 8.4 (4.5-11.0) K/mm3 RBC 3.84 (3.65-5.03) M/mm3 Hgb 11.2 L (11.8-15.2) gm/dl Hct 33.7 L (35.5-45.6) % MCV 88 (84-94) fl MCH 29 (28-32) pg MCHC 33 (32-34) % RDW 17.3 H (13.2-15.2) % Plt Count 147 (140-440) K/mm3 Lymph % (Auto) 3.4 L (13.4-35.0) % Avery % (Auto) 12.1 H (0.0-7.3) % Eos % (Auto) 0.0 (0.0-4.3) % Baso % (Auto) 0.4 (0.0-1.8) % Lymph # (Auto) 0.3 L (1.2-5.4) K/mm3 Avery # (Auto) 1.0 H (0.0-0.8) K/mm3 Eos # (Auto) 0.0 (0.0-0.4) K/mm3 Baso # (Auto) 0.0 (0.0-0.1) K/mm3 Seg Neutrophils % 84.1 H (40.0-70.0) % Seg Neutrophils # 7.1 (1.8-7.7) K/mm3 PT (12.2-14.9) Sec. INR (0.87-1.13) APTT (24.2-36.6) Sec. Sodium 136 L (137-145) mmol/L Potassium 3.3 L (3.6-5.0) mmol/L Chloride 102.4 (98-107) mmol/L Carbon Dioxide 28 (22-30) mmol/L Anion Gap 9 mmol/L BUN 22 H (9-20) mg/dL Creatinine 0.6 L (0.8-1.3) mg/dL Estimated GFR > 60 ml/min BUN/Creatinine Ratio 37 % Glucose 82 (75-100) mg/dL Calcium 8.3 L (8.4-10.2) mg/dL Total Bilirubin 0.80 (0.1-1.2) mg/dL AST 20 (5-40) units/L ALT 15 (7-56) units/L Alkaline Phosphatase 93 (35-129) units/L Troponin T < 0.010 (0.00-0.029) ng/mL NT-Pro-B Natriuret Pep (0-900) pg/mL Total Protein 5.1 L (6.3-8.2) g/dL Albumin 2.2 L (3.9-5) g/dL Albumin/Globulin Ratio 0.8 % Prealbumin 0.107 L (0.200-0.400) g/L TSH (0.270-4.200) mlU/mL Urine Color (Yellow) Urine Turbidity (Clear) Urine pH (5.0-7.0) Ur Specific [place] (1.003-1.030) Urine Protein (Negative) mg/dL Urine Glucose (UA) (Negative) mg/dL Urine Ketones (Negative) mg/dL Urine Blood (Negative) Urine Nitrite (Negative) Urine Bilirubin (Negative) Urine Urobilinogen (<2.0) mg/dL Ur Leukocyte Esterase (Negative) Urine WBC (Auto) (0.0-6.0) /HPF Urine RBC (Auto) (0.0-6.0) /HPF U Epithel Cells (Auto) (0-13.0) /HPF Urine Bacteria (Auto) (Negative) /HPF Calcium Oxalate Crystal Urine Mucus /HPF 10/05/20 10/05/20 10/05/20 Range/Units 10:22 10:22 10:22 WBC (4.5-11.0) K/mm3 RBC (3.65-5.03) M/mm3 Hgb (11.8-15.2) gm/dl Hct (35.5-45.6) % MCV (84-94) fl MCH (28-32) pg MCHC (32-34) % RDW (13.2-15.2) % Plt Count (140-440) K/mm3 Lymph % (Auto) (13.4-35.0) % Avery % (Auto) (0.0-7.3) % Eos % (Auto) (0.0-4.3) % Baso % (Auto) (0.0-1.8) % Lymph # (Auto) (1.2-5.4) K/mm3 Avery # (Auto) (0.0-0.8) K/mm3 Eos # (Auto) (0.0-0.4) K/mm3 Baso # (Auto) (0.0-0.1) K/mm3 Seg Neutrophils % (40.0-70.0) % Seg Neutrophils # (1.8-7.7) K/mm3 PT 14.3 (12.2-14.9) Sec. INR 1.12 (0.87-1.13) APTT 30.7 (24.2-36.6) Sec. Sodium (137-145) mmol/L Potassium (3.6-5.0) mmol/L Chloride (98-107) mmol/L Carbon Dioxide (22-30) mmol/L Anion Gap mmol/L BUN (9-20) mg/dL Creatinine (0.8-1.3) mg/dL Estimated GFR ml/min BUN/Creatinine Ratio % Glucose (75-100) mg/dL Calcium (8.4-10.2) mg/dL Total Bilirubin (0.1-1.2) mg/dL AST (5-40) units/L ALT (7-56) units/L Alkaline Phosphatase (35-129) units/L Troponin T (0.00-0.029) ng/mL NT-Pro-B Natriuret Pep 260.3 (0-900) pg/mL Total Protein (6.3-8.2) g/dL Albumin (3.9-5) g/dL Albumin/Globulin Ratio % Prealbumin (0.200-0.400) g/L TSH 3.270 (0.270-4.200) mlU/mL Urine Color (Yellow) Urine Turbidity (Clear) Urine pH (5.0-7.0) Ur Specific [place] (1.003-1.030) Urine Protein (Negative) mg/dL Urine Glucose (UA) (Negative) mg/dL Urine Ketones (Negative) mg/dL Urine Blood (Negative) Urine Nitrite (Negative) Urine Bilirubin (Negative) Urine Urobilinogen (<2.0) mg/dL Ur Leukocyte Esterase (Negative) Urine WBC (Auto) (0.0-6.0) /HPF Urine RBC (Auto) (0.0-6.0) /HPF U Epithel Cells (Auto) (0-13.0) /HPF Urine Bacteria (Auto) (Negative) /HPF Calcium Oxalate Crystal Urine Mucus /HPF 10/05/20 Range/Units 11:06 WBC (4.5-11.0) K/mm3 RBC (3.65-5.03) M/mm3 Hgb (11.8-15.2) gm/dl Hct (35.5-45.6) % MCV (84-94) fl MCH (28-32) pg MCHC (32-34) % RDW (13.2-15.2) % Plt Count (140-440) K/mm3 Lymph % (Auto) (13.4-35.0) % Avery % (Auto) (0.0-7.3) % Eos % (Auto) (0.0-4.3) % Baso % (Auto) (0.0-1.8) % Lymph # (Auto) (1.2-5.4) K/mm3 Avery # (Auto) (0.0-0.8) K/mm3 Eos # (Auto) (0.0-0.4) K/mm3 Baso # (Auto) (0.0-0.1) K/mm3 Seg Neutrophils % (40.0-70.0) % Seg Neutrophils # (1.8-7.7) K/mm3 PT (12.2-14.9) Sec. INR (0.87-1.13) APTT (24.2-36.6) Sec. Sodium (137-145) mmol/L Potassium (3.6-5.0) mmol/L Chloride (98-107) mmol/L Carbon Dioxide (22-30) mmol/L Anion Gap mmol/L BUN (9-20) mg/dL Creatinine (0.8-1.3) mg/dL Estimated GFR ml/min BUN/Creatinine Ratio % Glucose (75-100) mg/dL Calcium (8.4-10.2) mg/dL Total Bilirubin (0.1-1.2) mg/dL AST (5-40) units/L ALT (7-56) units/L Alkaline Phosphatase (35-129) units/L Troponin T (0.00-0.029) ng/mL NT-Pro-B Natriuret Pep (0-900) pg/mL Total Protein (6.3-8.2) g/dL Albumin (3.9-5) g/dL Albumin/Globulin Ratio % Prealbumin (0.200-0.400) g/L TSH (0.270-4.200) mlU/mL Urine Color Fiona (Yellow) Urine Turbidity Cloudy (Clear) Urine pH 6.0 (5.0-7.0) Ur Specific [place] 1.019 (1.003-1.030) Urine Protein 30 mg/dl (Negative) mg/dL Urine Glucose (UA) Neg (Negative) mg/dL Urine Ketones Tr (Negative) mg/dL Urine Blood Neg (Negative) Urine Nitrite Pos (Negative) Urine Bilirubin Neg (Negative) Urine Urobilinogen 2.0 (<2.0) mg/dL Ur Leukocyte Esterase Neg (Negative) Urine WBC (Auto) 3.0 (0.0-6.0) /HPF Urine RBC (Auto) 7.0 (0.0-6.0) /HPF U Epithel Cells (Auto) 14.0 H (0-13.0) /HPF Urine Bacteria (Auto) 2+ (Negative) /HPF Calcium Oxalate Crystal 1+ Urine Mucus 3+ /HPF - EKG Data -: EKG Interpreted by Me EKG shows normal: sinus rhythm, axis (Left axis deviation), intervals, QRS complexes (Left anterior fascicular block), ST-T waves Rate: normal - EKG Data When compared to previous EKG there are: no significant change Interpretation: unchanged when compared t (02/25/20) - Radiology Data Radiology results: image reviewed interpreted by me: Chest x-ray does not show any acute process. There are no pleural effusions, obvious pneumonia and there is no pneumothorax. No significant cardiomegaly. - Medical Decision Making This patient presents to the emergency department after the patient's was concerned about shortness of breath and left-sided body pain. Apparently the patient had been saying that he was short of breath to his throughout the evening and morning. He had had 3 visits from EMS and was brought to the emergency department on the third visit. Upon arrival to the emergency department the patient does not appear in any respiratory or acute distress. He is chronically blind and has right-sided hemiparesis. The patient is AAO x2 to person and place, but not time, but is cooperative. The patient appears to have some history of vascular dementia. A chest x-ray was completed that did not show any pneumonia, pleural effusions, pneumothorax, focal consolidation, or any other acute processes. The patient's labs have been mostly unremarkable including CBC, metabolic panel, troponin, proBNP and urinalysis, except for some mild hypokalemia and some si gns of low albumin. The patient was given IV fluid resuscitation and potassium chloride. EKG did not have any morphology consistent with ST elevation myocardial infarction or any significant dysrhythmia. The patient's vital signs have been reassuring throughout his ED course including being afebrile and no significant hypoxia. The patient does have a history of COPD and does have supplemental oxygen at home to use. Case management did an evaluation and found out that patient is currently under the care of the [facility]. They also spoke with the patient's who says that she is going to switch to a different hospice company on Monday as she is not comfortable with the care that has been provided up until now. The patient has been reevaluated multiple times over more than 5 hours in this emergency department. He has had no complaints during this time. He does not appear short of breath or in any respiratory or acute distress. He has made no complaints of any body pain and does not have any significant tenderness to palpation. For all these reasons the patient appears safe for discharge home at this time. I had a very long conversation with the patient's regarding the evaluation that was done throughout the emergency department, and we discussed hospice ca re and what that means. Patient's understands that she should call the hospice company upon his arrival back home for them to come out and do a reevaluation. She understands that they should be assisting with comfort care measures and home health care assistance. Critical Care Time: No Critical care attestation.: If time is entered above; I have spent that time in minutes in the direct care of this critically ill patient, excluding procedure time. ED Disposition Clinical Impression: Debility, History of CVA (cerebrovascular accident), Hypokalemia COPD (chronic obstructive pulmonary disease) Qualifiers: COPD type: unspecified COPD Qualified Code(s): J44.9 - Chronic obstructive pulmonary disease, unspecified Disposition: DC-01 TO HOME OR SELFCARE Is pt being admited?: No Condition: Stable Instructions: Chronic Obstructive Pulmonary Disease Exacerbation, Hypokalemia, Chronic Obstructive Pulmonary Disease (ED) Additional Instructions: Please contact your hospice company and have someone come out to the house for reevaluation. [facility] was notified of your visit to the emergency department and should be expecting your call. Referrals: PRIMARY CARE, [Primary Care Provider] - 2-3 Days Time of Disposition: 13:36
[2020-10-05 10:52] LABS: Basophils % (Auto) 0.4 % (0.0-1.8); Hematocrit 33.7 % (35.5-45.6); Hemoglobin 11.2 gm/dl (11.8-15.2); Lymphocytes # (Auto) 0.3 K/mm3 (1.2-5.4); Lymphocytes % (Auto) 3.4 % (13.4-35.0); Mean Corpuscular HGB Conc 33 % (32-34); Mean Corpuscular Volume 88 fl (84-94); Monocytes % (Auto) 12.1 % (0.0-7.3); Platelet Count 147 K/mm3 (140-440); Red Blood Count 3.84 M/mm3 (3.65-5.03); Red Cell Distribution Width 17.3 % (13.2-15.2)
[2020-10-05 11:02] LABS: INR 1.12 (0.87-1.13)
[2020-10-05 11:03] LABS: Partial Thromboplastin Time 30.7 Sec. (24.2-36.6)
--- NOTE | 2020-10-05 11:13 | XRay Report ---
CHEST 1 VIEW 10/05/2020 10:05 AM INDICATION / CLINICAL INFORMATION: SOB. COMPARISON: 09/18/20 FINDINGS: SUPPORT DEVICES: None. HEART / MEDIASTINUM: Stable. LUNGS / PLEURA: Slight worsening of bilateral patchy pulmonary opacities. No pneumothorax. ADDITIONAL FINDINGS: No significant additional findings. IMPRESSION: 1. Slight worsening of patchy pulmonary opacities which could represent pneumonia. Signer Name: Jared Wagner MD Signed: 10/05/2020 11:09 AM Workstation Name: [id number]
[2020-10-05 11:16] LABS: Alanine Aminotransferase 15 units/L (7-56); Albumin 2.2 g/dL (3.9-5); Blood Urea Nitrogen 22 mg/dL (9-20); Calcium 8.3 mg/dL (8.4-10.2); Hemolysis Index 4; Prealbumin 0.107 g/L (0.200-0.400)
[2020-10-05 11:17] LABS: BUN/Creatinine Ratio 37
[2020-10-05 11:23] LABS: Bacteria,Urine 2+ /HPF (Negative); Bilirubin,Urine NEG (Negative); Blood,Urine NEG (Negative); Calcium Oxalate Crystals,Urine 1+; Color,Urine Amber (Yellow); Mucus,Urine 3+ /HPF
[2020-10-05] MEDS: POTASSIUM CHLORIDE 10 MEQ 10 MEQ/100 ML BAG IV SCH ×2 (11:46→12:49)
[2020-10-05 14:41] VITALS: BP 126/74
== END 2020-10-05 17:50 | disposition home or self-care (01) ==
LOC: ED 08:57
DX: J44.9 Chronic obstructive pulmonary disease, unspecified (principal); R53.81 Other malaise; E87.6 Hypokalemia; I10 Essential (primary) hypertension; K21.9 Gastro-esophageal reflux disease without esophagitis; E78.00 Pure hypercholesterolemia, unspecified; Z79.899 Other long term (current) drug therapy; Z86.73 Personal history of transient ischemic attack (TIA), and cerebral infarction without residual deficits; Z98.890 Other specified postprocedural states
CPT/HCPCS: 36415; 71045; 80053; 81001; 83880; 84134; 84443; 84484; 85025; 85610; 85730; 93005; 96361; 96365; 96366; 99284; J3480; J7030

== ENCOUNTER 2020-11-28 12:41 | Emergency (ER) | payer MEDICARE ==
[2020-11-28 13:43] VITALS: BP 158/72
--- NOTE | 2020-11-28 14:06 | Emergency Department Report ---
ED ENT HPI - General Chief complaint: Dental/Oral Stated complaint: TOOTH PAIN Time Seen by Provider: 11/28/20 13:34 Source: patient, family, EMS Mode of arrival: Stretcher Limitations: Physical Limitation - History of Present Illness Initial comments: 80-year-old male, history of COPD, CVA, GERD, hypertension, presents to ED with mouth pain. Patient's called EMS for transport to ED. sent a note that states, "Mr. Ramos started having pain since last Monday (November 20, 1 week ago) with his tongue mostly (he cannot chew or hardly talk because of pain). Mr. Ramos is scheduled to have an appointment on December 18 at 8:00 AM at [facility]. Until then 3 weeks away, he needs antibiotic to stop infection in his mouth. He has excessive pain and saliva because of infection." I spoke with patient's over the phone who states that patient has had problems with his lower left molar in the past. She believes that this tooth is the culprit. She denies any fever. Patient denies any tooth pain, throat pain, difficulty swallowing. He reports pain to his tongue. Patient has a brown-austin coating to his tongue. Denies any oral tobacco use. states she would just like for patient to be placed on some antibiotics since his dentist appointment is still 3 weeks away. Because of patient's previous CVA she is unable to transport him easily back and forth to doctor's offices, so she sent him to the ER. MD complaint: tooth pain, other -: week(s) (1) Location: tooth # (17,18) Severity: mild Quality: aching Consistency: intermittent Improves with: none Worsens with: eating Context- Dental: poor dental care Associated Symptoms: toothache. denies: fever, pain with swallowing, sore throat - Related Data Home Medications Medication Instructions Recorded Confirmed Last Taken Multivitamin [Multi-Vitamin Daily] 1 each PO DAILY 06/04/13 02/25/20 02/24/20 08:00 hydrALAZINE [Apresoline TAB] 25 mg PO Q8H 06/04/13 02/25/20 02/24/20 08:00 Finasteride [Proscar] 5 mg PO QDAY 02/25/20 02/25/20 02/24/20 08:00 Tamsulosin [Flomax] 0.4 mg PO QDAY 02/25/20 02/25/20 02/24/20 21:00 Previous Rx's Medication Instructions Recorded Last Taken Type Famotidine [Pepcid] 20 mg PO BID #20 tablet 02/26/20 Unknown Rx Penicillin V Potassium 500 mg PO TID 7 Days #21 tablet 11/28/20 Unknown Rx Allergies Allergy/AdvReac Type Severity Reaction Status Date / Time No Known Allergies Allergy Verified 01/27/17 08:52 ED Dental HPI - General Chief complaint: Dental/Oral Stated complaint: TOOTH PAIN Time Seen by Provider: 11/28/20 13:34 Source: patient, family, EMS Mode of arrival: Stretcher Limitations: Physical Limitation - Related Data Home Medications Medication Instructions Recorded Confirmed Last Taken Multivitamin [Multi-Vitamin Daily] 1 each PO DAILY 06/04/13 02/25/20 02/24/20 08:00 hydrALAZINE [Apresoline TAB] 25 mg PO Q8H 06/04/13 02/25/20 02/24/20 08:00 Finasteride [Proscar] 5 mg PO QDAY 02/25/20 02/25/20 02/24/20 08:00 Tamsulosin [Flomax] 0.4 mg PO QDAY 02/25/20 02/25/20 02/24/20 21:00 Previous Rx's Medication Instructions Recorded Last Taken Type Famotidine [Pepcid] 20 mg PO BID #20 tablet 02/26/20 Unknown Rx Penicillin V Potassium 500 mg PO TID 7 Days #21 tablet 11/28/20 Unknown Rx Allergies Allergy/AdvReac Type Severity Reaction Status Date / Time No Known Allergies Allergy Verified 01/27/17 08:52 ED Review of Systems ROS: Stated complaint: TOOTH PAIN Other details as noted in HPI Comment: All other systems reviewed and negative Constitutional: denies: fever ENT: dental pain ED Past Medical Hx - Past Medical History Hx Hypertension: Yes (2010) Hx CVA: Yes (right sided weakness) Hx Heart Attack/AMI: No Hx Congestive Heart Failure: No Hx Diabetes: No Hx GERD: Yes Hx Asthma: No Hx COPD: Yes Hx HIV: No Additional medical history: high cholesterol, massive aneurysm, paralized right side, bed ridden x 8 years, visual impaired - Surgical History Additional Surgical History: Bilat knee, skull, bilat arm surgery - Social History Smoking Status: Never Smoker Substance Use Type: None - Medications Home Medications: Home Medications Medication Instructions Recorded Confirmed Last Taken Type Multivitamin [Multi-Vitamin Daily] 1 each PO DAILY 06/04/13 02/25/20 02/24/20 08:00 History hydrALAZINE [Apresoline TAB] 25 mg PO Q8H 06/04/13 02/25/20 02/24/20 08:00 History Finasteride [Proscar] 5 mg PO QDAY 02/25/20 02/25/20 02/24/20 08:00 History Tamsulosin [Flomax] 0.4 mg PO QDAY 02/25/20 02/25/20 02/24/20 21:00 History Famotidine [Pepcid] 20 mg PO BID #20 tablet 02/26/20 Unknown Rx Penicillin V Potassium 500 mg PO TID 7 Days #21 tablet 11/28/20 Unknown Rx ED Physical Exam - General Limitations: Physical Limitation General appearance: alert, in no apparent distress - Head Head exam: Present: atraumatic, normocephalic - Eye Eye exam: Present: normal appearance - ENT ENT exam: Present: other (Multiple dental caries; tenderness to #17 and 18 which are partially eroded secondary to caries) - Neck Neck exam: Present: normal inspection, other (No mandibular swelling present) - Respiratory Respiratory exam: Present: normal lung sounds bilaterally. Absent: respiratory distress - Cardiovascular Cardiovascular Exam: Present: regular rate, normal rhythm - GI/Abdominal GI/Abdominal exam: Absent: distended - Extremities Exam Extremities exam: Present: normal inspection - Neurological Exam Neurological exam: Present: alert, other (Baseline right-sided weakness secondary to previous CVA) - Psychiatric Psychiatric exam: Present: normal affect, normal mood - Skin Skin exam: Present: warm, dry, intact, normal color ED Course Vital Signs 11/28/20 13:34 Temperature 98.4 F Pulse Rate 76 Respiratory 14 Rate Blood Pressure 158/72 O2 Sat by Pulse 93 Oximetry ED Medical Decision Making - Medical Decision Making 80-year-old male presents to ED for tooth and tongue pain x1 week. reports patient is having difficulty chewing his food because of reported pain. Patient has appointment at [facility] dentist in 3 weeks, however believes patient may need some antibiotics in the meantime. Patient does have some tenderness to percussion in the lower left region. Vital signs are normal, patient is afebrile. Will prescribe a course of penicillin. Outpatient follow- up already scheduled. Return precautions given. Critical care attestation.: If time is entered above; I have spent that time in minutes in the direct care of this critically ill patient, excluding procedure time. ED Disposition Clinical Impression: Toothache Disposition: [id number] TO HOME OR SELFCARE Is pt being admited?: No Condition: Stable Instructions: Preventive Dental Care, Adult Prescriptions: Penicillin V Potassium 500 mg PO TID 7 Days #21 tablet Referrals: PRIMARY CARE, [Primary Care Provider] - 3-5 Days Time of Disposition: 14:24
== END 2020-11-28 19:19 | disposition home or self-care (01) ==
LOC: ED 12:41
DX: K08.89 Other specified disorders of teeth and supporting structures (principal); I10 Essential (primary) hypertension; K21.9 Gastro-esophageal reflux disease without esophagitis; J44.9 Chronic obstructive pulmonary disease, unspecified; Z86.73 Personal history of transient ischemic attack (TIA), and cerebral infarction without residual deficits; Z98.890 Other specified postprocedural states; Z79.899 Other long term (current) drug therapy